=== PATIENT | male | born 1970 | race Caucasian/White ===

== ENCOUNTER 2016-11-25 18:49 | Emergency (ER) | payer BC, OTHER ==
[~2016-11-25] VITALS: Ht 165.1 cm; Wt 97.6 kg
[2016-11-25 18:53] VITALS: Ht 165.1 cm; Wt 97.6 kg
[2016-11-25] MEDS ORDERED: ZNTT/150 PO (19:08)
[2016-11-25] MEDS ORDERED: ALPR-411 PO (19:08)
[2016-11-25] MEDS ORDERED: IBUP-1050 PO (19:08)
[2016-11-25] MEDS ORDERED: OXYCODONE HCL IR 5 MG TAB (IMMEDIATE RELEASE) PO STA (19:14)
[2016-11-25] MEDS ORDERED: OXYCODONE IR HOME PACK PO ONE ×2 (19:15→20:00)
--- NOTE | 2016-11-25 19:36 | DIAGNOSTIC IMAGING REPORT ---
LEFT SHOULDER MIN 2 VIEWS ROUTINE CLINICAL HISTORY: L shoulder pain pain COMPARISON: None. DISCUSSION: Calcific supraspinatus tendinitis. Osseous structures are unremarkable. No evidence for fracture or dislocation. There is no evidence for soft tissue swelling. IMPRESSION: Calcific supraspinatus tendinitis Electronically signed by: Basil Hodges M.D. 11/25/2016 7:34 PM Dictated Date/Time: 11/25/2016 7:34 PM
[2016-11-25] MEDS ORDERED: OXYC1TAB3 PO (19:59)
--- NOTE | 2016-11-25 20:13 | EMERGENCY ROOM VISIT NOTE ---
History First contact with patient: 18:57 Chief Complaint: SHOULDER PAIN Stated Complaint: LEFT SHOULDER PAIN History of Present Illness The patient is a 46 year old male who presents to the Emergency Room with his with complaints of left shoulder pain. The patient reports that he has had significant discomfort since trimming brush with a chainsaw on . He reports that he was cutting several overhead limbs. For the past 24 hours, he reports that the pain is excruciating. He is unable to move the shoulder intentionally, but is able to lift the arm with his right hand with moderate discomfort. He denies any pain extending into the neck, and denies any paresthesias or numbness of the left upper extremity. 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 He reports that the delivery vehicles have a low ratio steering, and to fully turn the wheels left and right, you have to really crank the steering wheel. While doing so at that time, he felt a sharp pop in his shoulder, and has had problems with his shoulder since that time. He did not have insurance at the time, and had no further PCP or orthopedic follow-up. He currently rates his discomfort a 6 out of 10. The patient is [id number]. Review of Systems 10 system review was performed and was negative except for pertinent positives and negatives as indicated in history of present illness Past Medical/Surgical History Medical Problems: (1) Benign Hypertension (2) Goiter Nos (3) Obesity, Nos Surgical Problems: (1) No history of previous surgery Family History Unremarkable Social History Smoking Status: Current Every Day Smoker Alcohol Use: occasionally Marital Status: Housing Status: lives with family Occupation Status: employed Current/Historical Medications Scheduled Ranitidine (Zantac), 1 TAB PO DAILY Scheduled PRN Alprazolam (Xanax), 1 TAB PO DAILY PRN for Anxiety Ibuprofen (Advil), 400-600 MG PO Q6H PRN for Pain Oxycodone Ir (Roxicodone Ir), 1-2 TAB PO Q4H PRN for Pain Allergies Coded Allergies: Aspirin (Verified Allergy, Unknown, unsure, 11/25/16) Physical Exam Vital Signs Date Time Temp Pulse Resp B/P (MAP) Pulse Ox O2 Delivery O2 Flow Rate FiO2 11/25/16 18:53 36.6 88 18 131/82 99 Room Air Physical Exam CONSTITUTIONAL: Healthy and well nourished. Alert and oriented X 3 with positive affect. She appears in mild to moderate discomfort from pain. HEENT: Normocephalic, atraumatic. Pupils equal, round and reactive. NECK: Full active range of motion without discomfort. No JVD or carotid bruits. RESPIRATORY: Clear to auscultation bilaterally with no wheezing, crackles, rhonchi or stridor. CARDIOVASCULAR: Regular rate and rhythm with no murmurs, rubs or gallops. MUSCULOSKELETAL: Examination shows the patient in significant discomfort with any active range of motion of the left shoulder. With passive range of motion, he is limited to approximate 45 of abduction and fourth flexion. He is also tender over the bicipital groove. No focal tenderness over the distal clavicle or acromioclavicular joint. Distal pulses are intact. INTEGUMENTARY: No rash or other significant dermatologic conditions noted. NEUROLOGIC: No focal neurologic deficits noted. Left hand and fingers are sensory intact. Medical Decision & Procedures ER Provider Diagnostic Interpretation: My interpretation of left shoulder x-ray shows a significant calcific supraspinatus tendinitis. No other acute findings are noted. Radiologist report is as follows: LEFT SHOULDER MIN 2 VIEWS ROUTINE CLINICAL HISTORY: L shoulder pain pain COMPARISON: None. DISCUSSION: Calcific supraspinatus tendinitis. Osseous structures are unremarkable. No evidence for fracture or dislocation. There is no evidence for soft tissue swelling. IMPRESSION: Calcific supraspinatus tendinitis Medications Administered Medications (Trade) Dose Ordered Sig/Rodolfo Route Start Time Stop Time Status Last Admin Dose Admin Oxycodone HCl (Roxicodone Immediate Rel Tab) 5 mg NOW STAT PO 11/25/16 19:14 11/25/16 19:16 DC 11/25/16 19:41 5 MG ED Course Patient history and physical exam were performed. Nurse's notes were reviewed. Vital signs were reviewed and were normal. The patient was administered OxyIR 5 mg for pain. X-rays of the left shoulder confirms a calcific tendinitis. X-rays were reviewed with the patient. He was encouraged to follow -up with [facility] for further reevaluation and management. He was encouraged to intermittently apply ice to shoulder. Performed gentle range of motion exercises to prevent stiffness. Ibuprofen and Tylenol in alternating fashion for baseline pain relief. He was provided a home pack and prescription for OxyIR as needed for worse pain. No drinking alcohol or driving while taking OxyIR. The patient was happy with plan of care, and rated his pain a 4 out of 10 at the time of discharge. Medical Decision Impression Primary Impression: Calcific tendinitis of left shoulder Departure Information Prescriptions Oxycodone Ir (Roxicodone Ir) 5 Mg Tab 1-2 TAB PO Q4H Y for Pain, #15 TAB For Initial Treatment Prov: Deven Viveros PA 11/25/16 Referrals Nicolle Meeks PA-C (PCP) Patient Instructions My [facility]
[2016-11-25 20:19] VITALS: BP 128/78; PULSE 81; TEMP 36.6; O2SAT 99
== END 2016-11-25 20:20 | disposition home or self-care (01) ==
LOC: C.EDB 18:50 → C.EDD 20:20
DX: M75.32 Calcific tendinitis of left shoulder (principal); X50.9XXA Other and unspecified overexertion or strenuous movements or postures, initial encounter; I10 Essential (primary) hypertension; E04.9 Nontoxic goiter, unspecified; E66.9 Obesity, unspecified; F17.200 Nicotine dependence, unspecified, uncomplicated